=== PATIENT | male | born 1960 | race Two or more races ===

== ENCOUNTER 2019-05-19 12:00 | Emergency (ER) | payer BC, OTHER ==
[~2019-05-19] VITALS: Ht 180.3 cm; Wt 103.0 kg
--- NOTE | 2019-05-19 12:05 | NUR ---
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 PATIENT HAS IV LINE ON LEFT WRIST G20.
[2019-05-19] MEDS ORDERED: FAMOTIDINE/PF INJ 20 MG/2 ML VIAL IV ONE ×2 (12:14→12:30)
[2019-05-19] MEDS ORDERED: methylPREDNISolone SOD SUCC 125 MG/2ML VIAL ONE (12:14)
--- NOTE | 2019-05-19 12:21 | NUR ---
PATIENT RESTING. NO DISTRESS NOTED.
[2019-05-19] MEDS ORDERED: IV NS 0.9% 1,000 ML BAG IV ONE (12:30)
[2019-05-19] MEDS ORDERED: methylPREDNISolone SOD SUCC 125 MG/2ML VIAL IV ONE (12:30)
--- NOTE | 2019-05-19 13:34 | NUR ---
Patient's hives, improved. Patient ambulatory with steady gait. Breathing even and unlabored, no sob noted. Needs attended, kept comfortable. IV removed. Catheter intact and site benign. Pressure and 4x4 applied to site. No bleeding noted.Patient discharged to home in stable condition. Written and verbal after care instructions given. Patient verbalizes understanding of instruction.
[2019-05-19 13:35] VITALS: BP 140/93
== END 2019-05-19 13:35 | disposition home or self-care (01) ==
LOC: ER 12:03
DX: T78.1XXA Other adverse food reactions, not elsewhere classified, initial encounter (principal); L50.9 Urticaria, unspecified; R42 Dizziness and giddiness; F17.200 Nicotine dependence, unspecified, uncomplicated; I10 Essential (primary) hypertension; E78.00 Pure hypercholesterolemia, unspecified; X58.XXXA Exposure to other specified factors, initial encounter
CPT/HCPCS: 96361; 96374; 96375; 99284; J2930; J3490; J7030

== ENCOUNTER 2025-02-07 00:58 | Emergency (ER) | payer OTHER ==
[~2025-02-07] VITALS: Ht 180.3 cm; Wt 103.0 kg
[2025-02-07 03:25] VITALS: BP 130/82; TEMP 97.9; O2SAT 96
== END 2025-02-07 03:26 ==
LOC: ER 01:00
DX: R09.81 Nasal congestion (principal); I10 Essential (primary) hypertension; F17.200 Nicotine dependence, unspecified, uncomplicated; E78.00 Pure hypercholesterolemia, unspecified; Z20.822 Contact with and (suspected) exposure to COVID-19
CPT/HCPCS: 71045-TC